=== PATIENT | male | born 2000 | race Hispanic/Latino ===

== ENCOUNTER 2025-03-16 19:06 | Emergency (ER) | payer OTHER, SELFPAY ==
[2025-03-16 19:13] VITALS: BP 180/105
[2025-03-16 19:33] LABS: Hematocrit 46.0 % (39.0-52.0); Hemoglobin 15.8 g/dL (13.0-18.0); Mean Corp Hgb Conc. 34.3 g/dL (33.0-37.0); Mean Corpuscular Volume 84.9 fL (80.0-94.0); Nucleated Red Blood Cells % 0 % (-); Platelet Count 248 10^3/uL (130-400); Red Cell Dist. Width 12.9 % (11.5-14.5)
[2025-03-16 19:58] LABS: ALT (SGPT) 41 U/L (0-50); AST (SGOT) 48 U/L (17-59); Albumin 4.7 g/dl (3.5-5.0); Alkaline Phosphatase 77 U/L (38-126); Blood Urea Nitrogen 14 mg/dl (9-20); Calcium 9.4 mg/dl (8.4-10.2); Carbon Dioxide 25 mmol/L (22-30); Chloride 103 mmol/L (98-107); Glucose 163 mg/dl (70-99); Potassium 3.6 mmol/L (3.5-5.1); Sodium 135 mmol/L (135-145); Total Protein 7.3 g/dl (6.3-8.2); eGFR > 60.00
[2025-03-16 20:08] LABS: Troponin I < 0.012 ng/ml
[2025-03-16 21:05] VITALS: BP 152/96
[2025-03-16 21:06] VITALS: BMI 43.3
--- NOTE | 2025-03-16 21:46 | ED.GENMED ---
History of Present Illness
General
Chief Complaint: Chest Pain
Source: patient
Exam Limitations: none
Time Seen by Provider: 03/16/25 21:23
Nursing documentation reviewed up to this point in time: agreed with
History of Present Illness
History of Present Illness:
25-year-old male with no significant past medical history states after a bachelor weekend where he golfed, played pool, drank tequila and the only recreational drug he did he took 1 Adderall yesterday, presents stating at 630 this evening he was
sitting at the dinner table with his parents when all of a sudden his lips felt tingly, his arms got numb, he got 'superhot in my face,' he went upstairs and splashed some water on his face, he felt like he would faint, then became more hot, more
tingly and 'my fingers curled and I could not move them, I could not talk, and my chest got tight like a band across my chest. He was driven here by a friend and was able to walk into the ER and was brought right back to the room. He states at
this time he feels about 25% better but still has that tightness across his upper chest. He said no fever or chills, no shortness of breath, no abdominal pain.
Past History
Past History
ED Past Medical History: None
ED Past Surgical History: None
Social History
Tobacco: Non-smoker
Alcohol: Occasional
Personal: Single
Living: with family
Employment: Employed
Review of Systems
Review of Systems
Allergies reviewed?: Yes
All Other Systems: ROS reviewed and negative except as documented in HPI and ROS
Phy Exam
Physical Exam
Physical Exam:
GENERAL: No acute distress. A&Ox3.
CONSTITUTIONAL: Afebrile.
EYES: clear, conjunctivae normal
ENMT: moist mucus membranes, Pharynx nl
RESPIRATORY: Regular respirations, nonlabored, lungs clear.
CARDIOVASCULAR: Regular rate and rhythm, no murmurs, no rubs.
GI: Soft, nontender, normal BS
MUSCULOSKELETAL: Chest wall is tender to palpation from the left sternal border across the left pectoral muscle. Moves with ease. Well perfused.
SKIN: Warm, dry, pink
PSYCH: Normal mood and affect. Well kept, interactive and appropriate
NEUROLOGIC: Awake, alert and oriented. No focal neurological deficits
Scores
Heart Score for Chest Pain Patients
STEMI patient?: Not applicable
Course
Orders/Labs/Results
Orders:
Orders
03/16/25 19:07
ECG [Electrocardiogram (*1)] Urgent
Reason for Study: Chest Pain
EKG- Treatment ONCE
03/16/25 19:25
Complete Blood Count/With Diff Urgent
Comprehensive Metabolic Panel Urgent
Troponin I Urgent
03/16/25 21:45
CR Chest - 2 Views Urgent
Comment:
Reason For Exam: chest pain
03/16/25 22:22
Troponin I Urgent
Abnormal Lab Results
03/16/25
19:25
MPV 10.6 H fL
(7.4-10.4)
Absolute Monos (auto) 0.7 H 10^3/uL
(0.1-0.6)
Glucose 163 H mg/dl
(70-99)
03/16/25 19:25
03/16/25 19:25
Vital Signs
Initial and Last Documented VS:
Initial Vital Signs
Temp Pulse Resp BP Pulse Ox
98.4 F 68 27 180/105 97
03/16/25 19:13 03/16/25 19:13 03/16/25 19:13 03/16/25 19:13 03/16/25 19:13
Last Documented Vital Signs
Temp Pulse Resp BP Pulse Ox
98.4 F 54 19 165/96 100
03/16/25 19:13 03/16/25 23:00 03/16/25 23:00 03/16/25 23:00 03/16/25 23:00
MDM/Problems Addressed
Differential Diagnosis Includes:
Musculoskeletal chest pain, anxiety attack, carpopedal spasms, ACS
MDM/Problems Addressed:
25-year-old male with no significant past medical history states after a bachelor weekend where he golfed, played pool, drank tequila and the only recreational drug he did he took 1 Adderall yesterday, presents stating at 630 this evening he was
sitting at the dinner table with his parents when all of a sudden his lips felt tingly, his arms got numb, he got 'superhot in my face,' he went upstairs and splashed some water on his face, he felt like he would faint, then became more hot, more
tingly and 'my fingers curled and I could not move them, I could not talk, and my chest got tight like a band across my chest. He was driven here by a friend and was able to walk into the ER and was brought right back to the room. He states at
this time he feels about 25% better but still has that tightness across his upper chest. He said no fever or chills, no shortness of breath, no abdominal pain.
No recollection of overuse or injury.
CBC normal
CMP normal
Troponin #1 normal
11:00 PM:
Chest x-ray NAD
Troponin #2 normal
Patient is stable for discharge.
Offered PCP hotline, he states he will get his own family doctor.
*Pulse Oximetry
SaO2: 99
Oxygen Mode of Delivery: Room air
Patient hypoxic: no
*Critical Care Note
Total Time (30-74mins, 75-104mins- exclusive of procedures): Not Applicable
ED Attending Note
-
Portions of this chart may have been created with voice recognition software.� Occasional wrong word or��sound alike� substitutions may have occurred due to the inherent limitations of voice recognition software.
Discharge Plan
Departure
Patient Disposition: Home (Routine Discharge)
Date of Disposition: 03/16/25
Time of Disposition: 22:58
Patient with high blood pressure during this ER visit?: No
Condition: Good
Discharge Problem:
Carpopedal spasm, Atypical chest pain
Instructions: Hyperventilation, Chest Pain That Is Not Caused by the Heart (DC)
Prescriptions:
No Action
cyclobenzaprine 10 MG tablet
10 mg PO TIDPRN PRN (Reason: as needed for pain ) Qty: 12 0RF
Referrals:
NONE,* [Family Provider, Internal Medicine]
Activity Restrictions/Additional Instructions:
As we discussed, nothing worrisome in your workup here today. Specifically no indication of damage to your heart or heart attack.
Interventions
Interventions:
*Risk Screen - Suicide Last Done: 03/16/25 19:15
*General Assessment Last Done: 03/16/25 19:15
*Neglect/Abuse Screening Last Done: 03/16/25 19:15
*ED COVID-19 Vaccine History Last Done: 03/16/25 21:05
*ED Influenza Vaccine History Last Done: 03/16/25 21:05
ED- Cardiac Assessment Last Done: 03/16/25 21:01
Discharge Date and Time
Print Language: ZAMBIAN
[2025-03-16 22:00] VITALS: BP 171/99
[2025-03-16 22:52] LABS: Troponin I < 0.012 ng/ml
[2025-03-16 23:00] VITALS: BP 165/96
== END 2025-03-16 23:08 | disposition home or self-care (01) ==
LOC: EMR 19:06
PROVIDERS: Registered Nurse; EMERGENCY PHYSICIAN Student in an Organized Health Care Education/Training Program
DX: R29.0 Tetany (principal); R07.9 Chest pain, unspecified
CPT/HCPCS: 99284; 71046; 80053; 84484; 85025; 93005